=== PATIENT | female | born 1965 | race Caucasian/White ===

== ENCOUNTER 2019-11-19 09:42 | Observation (INO) | payer OTHER ==
[~2019-11-19] VITALS: Ht 162.6 cm; Wt 91.0 kg
[~2019-11-19 09:42] MED LIST: SILVADENE1 % EX
--- NOTE | 2019-11-19 09:46 | NUR ---
PATIENT TO ROOM WITH A STEADY GAIT, GUARDING RLQ.
--- NOTE | 2019-11-19 09:54 | NUR ---
PT TO ROOM WITH STEADY GAIT PT STATES HAVING SEVERE RLQ ABD PAIN THAT DOES NOT RADIATE, PT STATES PAIN IS A 10/10, PT DENIES ANY N/V/D, DENIES SOB, OR C/P. PT IS AOX4
[2019-11-19 10:13] LABS: URINE BILIRUBIN - DIPSTICK NEGATIVE (NEGATIVE); URINE BLOOD DIPSTICK TRACE-INTACT (NEGATIVE); URINE COLOR YELLOW; URINE GLUCOSE - DIPSTICK NEGATIVE (NEGATIVE); URINE KETONE TRACE mg/dL (NEGATIVE); URINE NITRITE - DIPSTICK NEGATIVE (Negative); URINE PROTEIN - DIPSTICK NEGATIVE (NEG-TRACE); URINE UROBILINOGEN - DIPSTICK 0.2 E.U./dL (0.2)
[2019-11-19 10:14] LABS: URINE LEUK ESTERASE TRACE (NEGATIVE)
[2019-11-19 10:15] LABS: HEMATOCRIT 43.9 % (37.0-47.0); HEMOGLOBIN 13.6 g/dl (12.0-16.0); IMMATURE GRANULOCYTES 0.5 % (0.0-5.0); MEAN CELL VOLUME 83.1 fL CALC (80.0-100.0); MEAN CORPUSCULAR HGB 25.8 pG CALC (26.0-32.0); NEUT# 13.87 thou/uL (2.00-7.15); RED BLOOD COUNT 5.28 mill/uL (4.20-5.60); RED CELL DISTRI WIDTH 12.6 % (11.5-15.5)
[2019-11-19 10:25] LABS: ALBUMIN 5.1 g/dL (3.2-5.0); ALKALINE PHOSPHATASE 88 u/l (38-126); ANION GAP 14 (6-22 (CALC)); BILIRUBIN, TOTAL 0.4 mg/dL (0.0-1.4); BUN 15 mg/dL (7-17); BUN/CREATININE RATIO 30 (12-20 (CALC)); CARBON DIOXIDE 24 mmol/l (22-30); CHLORIDE 103 mmol/l (95-108); CREATININE 0.5 mg/dL (0.5-1.0); GFR > 60 ML/MIN (>=60 (CALC)); GFR FOR AFR.AMER. > 60 ML/MIN (>=60 (CALC)); POTASSIUM 4.1 mmol/l (3.5-5.1); SGOT/AST 25 u/l (14-36); SODIUM 136 mmol/l (137-146); TOTAL PROTEIN 8.4 g/dL (6.3-8.2)
--- NOTE | 2019-11-19 10:54 | NUR ---
PT STATES PAIN IS DECREASING WITH OCCASIONAL SPASM. PT AMBULATED TO RESTROOM AND BACK TO ROOM WITH OUT ISSUE.
--- NOTE | 2019-11-19 11:54 | NUR ---
PT RESTING ON STRETCHER, STATES PAIN IS THE SAME AT THIS TIME. AWAWITING RESULTS.
--- NOTE | 2019-11-19 12:22 | NUR ---
PT STATES PAIN HAS INCREASED, MD NOTIFIED AND MEDICATION GIVEN
--- NOTE | 2019-11-19 13:01 | NUR ---
SBAR PRINTED TO FLOOR
--- NOTE | 2019-11-19 13:07 | NUR ---
PT STATES THAT PAIN HAS DECREASED TO A 5/10 WITH MEDICATION. PT APPERARS RELAXED ON STRETCHER,
--- NOTE | 2019-11-19 14:07 | NUR ---
PT RESTING ON STRETCHER, AWAITING [facility] AVAILABILITY
--- NOTE | 2019-11-19 14:20 | NUR ---
ANASETHOLOGY AT BEDSIDE
--- NOTE | 2019-11-19 14:24 | NUR ---
REPORT REC FROM NINO MAO
--- NOTE | 2019-11-19 14:29 | NUR ---
[facility] RETURNED CALL, REPORT GIVEN TO CAITLYN LINDA, ACCPETED PT
--- NOTE | 2019-11-19 14:35 | NUR ---
Admission Note Report Given to: CAITLYN RAGSDALEN Transported by: Wheelchair X Stretcher Transported with: X Nurse Transporter X Patent IV O2 Safety And Health Manager Location: ICU X [facility] TRANSPORTED WITHOUT INCIDENT
--- NOTE | 2019-11-19 14:36 | NUR ---
PT ARRIVED TO ND VIA STRETCHER ACCOMPANIED BY NINO MAO. PT A&O X3. NO DISTRESS NOTED. PT C/O OF RLQ PAIN 10/21. PER WRITTEN ED ORDERS AND SHAMIKA IN OR, PT TO BE NPO AFTER MIDNIGHT. NO OTHER NEEDS AT THIS TIME. ORIENTED PT TO ROOM. ASSESSMENT COMPLETED. DISCUSSED POC. CALL LIGHT IN REACH. CONTINUE TO MONITOR.
[2019-11-19 14:44] VITALS: BP 122/78
[2019-11-19 18:55] VITALS: BP 108/75
--- NOTE | 2019-11-19 20:20 | NUR ---
ASSESSMENT COMPLETED. PT. REPORTING ABD PAIN AND GARCIA AND REPORTS THAT MORPHINE GAVE A GARCIA AND WOULD LIKE SOMETHING ELSE DISCUSSED PAIN MEDICATIONS WITH PT. AND PT. REQUESTING PRN TORADOL; WILL ASK MD BOWL SANDER. PT. AWARE OF NPO DIET AFTER MIDNIGHT. ENCOURAGED TO CALL FOR ANY NEEDS. CALL LIGHT IS IN REACH. WILL CONTINUE TO MONITOR.
--- NOTE | 2019-11-19 21:31 | NUR ---
PT. MEDICATED WITH ORDERED PRN TORADOL TO ASSIST WITH GARCIA AND RLQ PAIN 11/21; PT. PREFERS TORADOL OVER MORPHINE SHE REPORTS IT GIVES HER A REBOUND GARCIA. ORDERS RECEIVED FOR TORADOL FROM PT. REQUESTING IT.
[2019-11-20] VITALS (9 sets, daily range): BP systolic 97–139; BP diastolic 58–77
--- NOTE | 2019-11-20 | NUR ---
PT. RESTING IN BED ON LEFT SIDE AND DENIES NEEDS/PAIN. REMINDED ON NPO STATUS; ENCOURAGED TO CALL FOR ANY NEEDS. CALL LIGHT IS IN REACH.
--- NOTE | 2019-11-20 02:22 | NUR ---
PT. RESTING IN BED WITH NO DISTRESS NOTED; DENIES NEEDS/PAIN. ENCOURAGED TO CALL FOR ANY NEEDS.
--- NOTE | 2019-11-20 05:01 | NUR ---
PT. C/O ABD RLQ PAIN AND MEDICATED WITH ORDERED PRN TORADOL PER ORDER AND PT. REQUEST. ENCOURAGED TO CALL FOR ANY NEEDS.
--- NOTE | 2019-11-20 06:59 | NUR ---
PT RESTING IN BED, NO SIGNS OF DISTRESS NOTED, RESP EVEN AND UNLABORED. PT ALERT AND ORIENTED X3, DISCUSSED POC, VITALS OBTAINED. INFORMED PT THAT OR WILL BE ARRIVING SOON TO TAKE HER TO OR. JEWELRY REMOVED AND PLACED IN DENTURE CUPS WITH PT LABEL. ASSESSMENT COMPLETED, PT UP TO BATHROOM TO VOID, CALL LIGHT IN REACH,CONTINUE TO MONITOR.
--- NOTE | 2019-11-20 07:05 | NUR ---
OR ARRIVED TO TAKE PT TO OR. PT TAKEN VIA STRETCHER ACCOMPANIED BY OR NURSE IN STABLE CONDITION.
--- NOTE | 2019-11-20 07:25 | NUR ---
PT RESTING IN BED, NO SIGNS OF DISTRESS NOTED, RESP EVEN AND UNLABORED. PT ALERT AND ORIENTED X3, VITAL OBTAINED, INFORMED PT THAT OR WILL BE ARRIVING SOON TO TAKE PT TO OR. JEWELRY REMOVED, VSS, PT VOIDED. ASSESSMENT COMPLETED, CALL LIGHT IN REACH,CONTINUE TO MONITOR.
--- NOTE | 2019-11-20 09:55 | NUR ---
PT RETURNED TO FLOOR WITH OR NURSE VIA STRETCHER PT TRANSFERRED SELF TO BED, NO SIGNS OF DISTRESS NOTED, RESP EVEN AND UNLABORED. VITALS OBTAINED AND INFORMED PT OF POST OP VITALS, PT AGREES, PT HAS 02 [address]CD'S IN PLACE, ABD INCISION X3 SECURED WITH GAUZE AND TEGADERM, DRESSINGS CDI. CALL LIGHT IN REACH,CONTINUE TO MONITOR.
--- NOTE | 2019-11-20 12:28 | NUR ---
PT RESTING IN BED, LUNCH TRAY PROVIDED, PT STATES HER SON WILL BE HERE TO PICK HER UP AROUND 1500, PT VOICES NO NEEDS OR COMPLAINTS AT THIS TIME, CALL LIGHT IN REACH,CONTINUE TO MONITOR.
--- NOTE | 2019-11-20 13:14 | NUR ---
PT SITTING IN BED, TOLERATED LUNCH TRAY. PT C/O PAIN TO ABD, 12/22. PT MEDICATED FOR PAIN. DISCUSSED DISCHARGE INSTRUCTIONS PT VERBALIZED UNDERSTANDING. INSTRUCTED PT TO CALL ONCE HER RIDE ARRIVES. CALL LIGHT IN REACH,CONTINUE TO MONITOR.
--- NOTE | 2019-11-20 14:19 | NUR ---
Discharge instructions given. Patient verbalizes understanding of same. Discharged in stable condition via Wheelchair to Home with family. All belongings sent with pt.
== END 2019-11-20 14:18 | disposition home or self-care (01) | DRG 343 ==
LOC: ED 09:42 → ED-I 12:50 → ED 12:53 → ED-I 12:54 → MS2 14:03
PROVIDERS: Student in an Organized Health Care Education/Training Program; ADMIT Internal Medicine; ATTEND Internal Medicine
PROC: 0DTJ4ZZ Resection of Appendix, Percutaneous Endoscopic Approach (ICD-10-PCS; principal; 2019-11-20)
DX: K35.80 Unspecified acute appendicitis (principal); F17.210 Nicotine dependence, cigarettes, uncomplicated; Z11.59 Encounter for screening for other viral diseases
CPT/HCPCS: G0378; J2710; Q9967